=== PATIENT | male | born 1960 | race African-American/Black ===

== ENCOUNTER 2025-09-11 14:53 | Emergency (ER) | payer BC, OTHER ==
[2025-09-11 15:14] VITALS: BP 128/75; PULSE 97; RESP 18; TEMP 97.6; BMI 40.4
[2025-09-11] MEDS ORDERED: IBUPROFEN 400 MG TABLET (FP) PO ONE ×2 (15:37→17:10)
[2025-09-11] MEDS: IBUPROFEN 400 MG TABLET (FP) PO ONE (15:41)
[2025-09-11] MEDS ORDERED: LIDOCAINE 5% TOPICAL PATCH ONE (17:10)
== END 2025-09-11 17:54 | disposition home or self-care (01) ==
LOC: JERFT 14:53
DX: M25.512 Pain in left shoulder (principal); M25.532 Pain in left wrist; R93.89 Abnormal findings on diagnostic imaging of other specified body structures; W01.0XXA Fall on same level from slipping, tripping and stumbling without subsequent striking against object, initial encounter
CPT/HCPCS: 71046-TC-FY; 73030-TC-LT-FY; 73110-TC-LT-FY; 73130-TC-LT-FY; 99284-25